=== PATIENT | male | born 2000 | race Caucasian/White ===

== ENCOUNTER → 2025-01-07 11:26 | Outpatient (REF) | payer OTHER, SELFPAY | LOC: HWRAD 11:26 | PROVIDERS: ATTENDING PHYSICIAN Otolaryngology Facial Plastic Surgery; FAMILY PHYSICIAN Family Medicine | DX: J34.2 Deviated nasal septum (principal); J32.0 Chronic maxillary sinusitis; J34.3 Hypertrophy of nasal turbinates | CPT/HCPCS: 70486 ==